=== PATIENT | female | born 1990 | race Hispanic/Latino ===

== ENCOUNTER 2017-07-09 05:36 | Inpatient (IN) | payer MEDICAID ==
[~2017-07-09] VITALS: Ht 157.5 cm; Wt 84.8 kg
[~2017-07-09 05:36] MED LIST: IBUP-2070 PO; PREN1TAB89 PO
[2017-07-09] MEDS ORDERED: LACTATED RINGERS 1000ML 1,000 ML IV SCH (05:45)
[2017-07-09] MEDS ORDERED: PREN-196 PO (05:49)
[2017-07-09] MEDS ORDERED: DOXY1TAB3 PO (05:49)
[2017-07-09 06:09] LABS: APPEARANCE,URINE Clear (CLEAR); BILIRUBIN,URINE Negative (NEGATIVE); COLOR,URINE Yellow (YELLOW); GLUCOSE, URINE (UA) Negative (NEGATIVE); KETONES,URINE Negative (NEGATIVE); LEUKOCYTE ESTERASE ,URINE Trace (NEGATIVE); NITRATE,URINE Negative (NEGATIVE); OCCULT BLOOD,URINE Small (NEGATIVE); PH,URINE 7.5 (5.0-8.0); PROTEIN,URINE Negative (NEGATIVE); UROBILINOGEN,URINE 0.2 mg/dL (0.2-1.0)
[2017-07-09] MEDS ORDERED: LACTATED RINGERS 1000ML 1,000 ML IV STA (06:09)
[2017-07-09 06:11] VITALS: BP 120/70
[2017-07-09] MEDS ORDERED: LIDOCAINE HCL 1% 20 ML VIAL INJ STA (06:13)
[2017-07-09] MEDS ORDERED: ROPIVACAINE 0.2%200ML EPIDURAL 200 ML EP SCH (06:15)
[2017-07-09] MEDS ORDERED: MEPERIDINE-PF 50 MG/ML SYG IVP PRN (06:15)
[2017-07-09] MEDS ORDERED: NALOXONE HCL 0.4 MG/1 ML ML IV PRN (06:15)
[2017-07-09] MEDS ORDERED: EPHEDRINE SULFATE 50 MG/ML AMPULE IVP PRN (06:15)
[2017-07-09] MEDS ORDERED: LACTATED RINGERS 500 ML 500 ML IV PRN (06:15)
[2017-07-09] MEDS ORDERED: PROMETHAZINE HCL 25 MG/ML 1ML AMPULE IM PRN (06:15)
[2017-07-09] MEDS ORDERED: LACTATED RINGERS 1000ML 1,000 ML IV ONE ×2 (06:16→11:33)
[2017-07-09] MEDS ORDERED: OXYTOCIN 10 USP UNITS/ML ONE ×2 (06:17→11:34)
[2017-07-09] MEDS ORDERED: LIDOCAINE HCL 1% 20 ML VIAL ONE (06:19)
[2017-07-09] MEDS ORDERED: PROMETHAZINE HCL 25 MG/ML 1ML AMPULE IM ONE (06:20)
[2017-07-09 06:21] LABS: MEAN CORPUSCULAR HEMOGLOBIN 29.3 pg (27.0-33.0); MEAN CORPUSCULAR HGB CONC 34.8 g/dL (32.0-36.0); MEAN CORPUSCULAR VOLUME 84.4 fL (79-99); PLATELET COUNT (AUTO) 204 K/uL (130-400); RED CELL DISTRIBUTION WIDTH 15.3 % (11.0-15.5); WHITE BLOOD COUNT (AUTO) 9.7 K/uL (4.8-10.8)
[2017-07-09] MEDS ORDERED: MEPERIDINE-PF 50 MG/ML SYG ONE (06:21)
[2017-07-09 06:25] LABS: BACTERIA,URINE Rare /HPF (None Seen); RBC,URINE 0-1 /HPF (0-1); SQUAMOUS EPITHELIAL CELL,UR Moderate /LPF (0-2)
[2017-07-09 06:26] LABS: MUCUS,URINE Few LPF (None Seen)
[2017-07-09] MEDS: OXYTOCIN-LR 20 UNITS/1000 ML 1,000 ML IV SCH ×2 (06:31→07:35)
[2017-07-09] MEDS: FLU VACC QS2017-18 36MOS UP/PF 60 MCG/0.5 ML ML IM SCH ×2 (06:45→14:01)
[2017-07-09] MEDS ORDERED: WITCH HAZEL 1 PAD TP PRN (07:45)
[2017-07-09] MEDS ORDERED: OXYTOCIN-LR 20 UNITS/1000 ML 1,000 ML IV SCH (07:45)
[2017-07-09] MEDS ORDERED: ACETAMINOPHEN 325 MG TAB PO PRN (07:45)
[2017-07-09] MEDS ORDERED: DIPH,PERTUSS(ACELL),TET VAC/PF 0.5 ML VIAL IM PRN (07:45)
[2017-07-09] MEDS ORDERED: IBUPROFEN 800 MG TAB PO PRN (07:45)
[2017-07-09] MEDS: IBUPROFEN 600 MG TABLET PO PRN ×3 (08:54→21:18)
[2017-07-09] MEDS: DOCUSATE SODIUM 100 MG CAP PO SCH ×2 (09:00→20:37)
[2017-07-09 11:29] VITALS: BP 128/78
[2017-07-09 12:09] VITALS: BP 128/62
[2017-07-09] MEDS ORDERED: DIPH,PERTUSS(ACELL),TET VAC/PF 0.5 ML VIAL IM ONE (13:50)
[2017-07-09 16:00] VITALS: BP 110/60
[2017-07-09 20:30] VITALS: BP 115/75
[2017-07-09 23:55] VITALS: BP 124/73
[2017-07-10 03:25] VITALS: BP 103/62
[2017-07-10] MEDS: IBUPROFEN 600 MG TABLET PO PRN ×2 (05:09→11:20)
[2017-07-10 07:45] VITALS: BP 121/67
[2017-07-10] MEDS: DOCUSATE SODIUM 100 MG CAP PO SCH (07:54)
[2017-07-10 11:19] VITALS: BP 118/71
[2017-07-12 05:18] LABS: HEPATITIS Bs ANTIGEN SCREEN P Negative (Negative)
== END 2017-07-10 13:15 | disposition home or self-care (01) | DRG 560 ==
LOC: EDH 05:36 → OBSVTOIN 05:45 → LDH 05:45 → INTOOBSV 05:45 → WSH 12:30
PROVIDERS: ADMIT Obstetrics & Gynecology; ATTEND Obstetrics & Gynecology
PROC: 10907ZC Drainage of Amniotic Fluid, Therapeutic from Products of Conception, Via Natural or Artificial Opening (ICD-10-PCS; principal; 2017-07-09)
PROC: 10E0XZZ Delivery of Products of Conception, External Approach (ICD-10-PCS; 2017-07-09)
PROC: 3E0234Z Introduction of Serum, Toxoid and Vaccine into Muscle, Percutaneous Approach (ICD-10-PCS; 2017-07-09)
PROC: 3E0234Z Introduction of Serum, Toxoid and Vaccine into Muscle, Percutaneous Approach (ICD-10-PCS; 2017-07-09)
DX: O80 Encounter for full-term uncomplicated delivery (principal); Z23 Encounter for immunization; Z37.0 Single live birth; Z3A.38 38 weeks gestation of pregnancy
CPT/HCPCS: 36415; 81001; 85027; 86592; 86850; 86900; 86901; 87340; 90715; A4351; J2175; J2550; J2590; J7120; Q2038

== ENCOUNTER 2017-09-05 05:37 | Day surgery (SDC) | payer MEDICAID ==
[2017-09-04 11:30] VITALS: BP 102/68
[2017-09-04 11:41] LABS: BASOPHILS % (AUTO) 0.5 % (0.0-5.0); EOSINOPHILS % (AUTO) 1.8 % (0.0-8.0); HEMATOCRIT 36.8 % (36-48); LYMPHOCYTES % (AUTO) 19.8 % (21.0-51.0); MEAN CORPUSCULAR HEMOGLOBIN 28.7 pg (27.0-33.0); MEAN CORPUSCULAR HGB CONC 34.4 g/dL (32.0-36.0); MEAN CORPUSCULAR VOLUME 83.5 fL (79-99); MONOCYTES % (AUTO) 5.8 % (3.0-13.0); NEUTROPHILS % (AUTO) 72.1 % (40.0-77.0); NUCLEATED RED BLOOD CELLS 0.1 % (0.0-0.19); PLATELET COUNT (AUTO) 291 K/uL (130-400); RED BLOOD CELL COUNT(AUTO) 4.41 MIL/uL (4.00-5.50); RED CELL DISTRIBUTION WIDTH 14.7 % (11.0-15.5); WHITE BLOOD COUNT (AUTO) 9.2 K/uL (4.8-10.8)
[2017-09-05] VITALS (17 sets, daily range): BP systolic 111–145; BP diastolic 64–89
[~2017-09-05] VITALS: Ht 157.5 cm; Wt 78.0 kg
[~2017-09-05 05:37] MED LIST changes: -IBUP-2070 PO; +LACTATED RINGERS 1000ML 1,000 ML IV ONE; -PREN1TAB89 PO
[2017-09-05] MEDS ORDERED: ROCURONIUM BROMIDE 10MG/1ML 5ML VL ONE (06:57)
[2017-09-05] MEDS ORDERED: PHENYLEPHRINE HCL 10 MG/ML 1ML VIAL IV ONE (06:57)
[2017-09-05] MEDS ORDERED: LIDOCAINE HCL 2% JELLY 5 ML ONE (06:57)
[2017-09-05] MEDS ORDERED: DEXAMETHASONE SOD PHOSPHATE 10MG/ML 1ML VIAL ONE (06:57)
[2017-09-05] MEDS ORDERED: ONDANSETRON HCL 4 MG/2 ML VIAL ONE (06:57)
[2017-09-05] MEDS ORDERED: GLYCOPYRROLATE 0.2 MG/ML 5 ML VIAL ONE (06:57)
[2017-09-05] MEDS ORDERED: LIDOCAINE HCL 4% LTA SOL 4 ML VIAL ONE (06:57)
[2017-09-05] MEDS ORDERED: LIDOCAINE HCL MPF 1% 5ML VIAL ONE (06:57)
[2017-09-05] MEDS ORDERED: LIDOCAINE PF 2% 5ML ABBOJECT ONE (06:57)
[2017-09-05] MEDS ORDERED: PROPOFOL 10 MG/ML 20ML VIAL IV ONE (06:58)
[2017-09-05] MEDS ORDERED: MIDAZOLAM HCL 1 MG/ML 2ML VIAL ONE (06:58)
[2017-09-05] MEDS ORDERED: FENTANYL CITRATE PF 50 MCG/1 ML 2ML VIAL ONE (06:58)
[2017-09-05] MEDS ORDERED: MEPERIDINE-PF 50 MG/ML SYG ONE (07:57)
[2017-09-05] MEDS ORDERED: TYL3 PO (09:21)
== END 2017-09-05 09:54 | disposition home or self-care (01) ==
LOC: DAH 05:37
PROVIDERS: ATTEND Obstetrics & Gynecology
DX: Z30.2 Encounter for sterilization (principal); I10 Essential (primary) hypertension; Z82.49 Family history of ischemic heart disease and other diseases of the circulatory system; Z83.3 Family history of diabetes mellitus
CPT/HCPCS: 36415; 58661; 84703; 85025; 86850; 86900; 86901; A4215; A4351; A4452; A4510; A4600; A4606; C1769 ×2; J1100; J2001; J2175; J2250; J2370; J2405; J2704; J3010; J3490 ×3; J7120

== ENCOUNTER 2018-05-05 21:46 | Emergency (ER) | payer OTHER ==
[~2018-05-05 21:46] MED LIST changes: -LACTATED RINGERS 1000ML 1,000 ML IV ONE; +TYL3 PO
[2018-05-05] MEDS ORDERED: SODIUM CHLORIDE 0.9% 1000ML 1,000 ML IV ONE (22:35)
[2018-05-05 22:38] LABS: BASOPHILS % (AUTO) 1.6 % (0.0-5.0); HEMATOCRIT 36.2 % (36-48); LYMPHOCYTES % (AUTO) 25.2 % (21.0-51.0); MEAN CORPUSCULAR HEMOGLOBIN 27.9 pg (27.0-33.0); MEAN CORPUSCULAR VOLUME 81.9 fL (79-99); MONOCYTES % (AUTO) 5.4 % (3.0-13.0); NEUTROPHILS % (AUTO) 65.8 % (40.0-77.0); PLATELET COUNT (AUTO) 310 K/uL (130-400); RED BLOOD CELL COUNT(AUTO) 4.42 MIL/uL (4.00-5.50); WHITE BLOOD COUNT (AUTO) 9.5 K/uL (4.8-10.8)
[2018-05-05 22:47] LABS: CREATININE 0.6 mg/dL (0.5-1.5); POTASSIUM 3.5 mmol/L (3.5-5.1)
[2018-05-05 22:48] LABS: INR 0.94 (0.85-1.15); PARTIAL THROMBOPLASTIN TIME 27.9 SEC (26.3-35.5); PROTHROMBIN TIME 9.9 SEC (9.6-11.6)
== END 2018-05-05 23:25 | disposition home or self-care (01) ==
LOC: EDH 21:46
DX: N93.9 Abnormal uterine and vaginal bleeding, unspecified (principal); Z98.51 Tubal ligation status; Z90.49 Acquired absence of other specified parts of digestive tract
CPT/HCPCS: 36415; 80048; 81025; 85025; 85610; 85730; 99284; J7030

== ENCOUNTER 2022-05-22 07:15 | Emergency (ER) | payer OTHER ==
[~2022-05-22] VITALS: Ht 154.9 cm; Wt 86.2 kg
[2022-05-22] MEDS ORDERED: ORPHENADRINE CITRATE 30 MG/ML ML IM ONE (08:30)
[2022-05-22] MEDS ORDERED: KETOROLAC 60 MG VIAL (30MG/ML) IM ONE (08:30)
[2022-05-22] MEDS ORDERED: MORPHINE 4 MG SYG IM ONE (09:30)
[2022-05-22] MEDS ORDERED: NAPR-1174 PO (10:51)
[2022-05-22] MEDS ORDERED: CYCL-309 PO (10:51)
[2022-05-22 11:19] VITALS: BP 122/71
== END 2022-05-22 11:22 | disposition home or self-care (01) ==
LOC: EDH 07:15
DX: M54.41 Lumbago with sciatica, right side (principal); Z79.1 Long term (current) use of non-steroidal anti-inflammatories (NSAID); Z90.49 Acquired absence of other specified parts of digestive tract
CPT/HCPCS: 99284; 81025; 96372 ×3; J2270; J1885; J2360